=== PATIENT | female | born 1970 | race Caucasian/White ===

== ENCOUNTER 2024-12-05 09:54 | Inpatient (IN) | payer BC, SELFPAY ==
[2024-12-05 13:02] VITALS: BMI 35.4
[2024-12-05] MEDS ORDERED: ESZOPICLONE 1 MG TAB PO PRN (13:02)
[2024-12-05] MEDS: METHYLPREDNISOLONE 125 MG INJ IV ONE (13:51)
[2024-12-05] MEDS: FEXOFENADINE 180 MG TAB PO SCH (13:51)
[2024-12-05 14:09] LABS: Absolute Lymphocytes (CBC) 0.9 K/uL (0.7-4.9); Hematocrit 42.4 % (36.0-45.0); Hemoglobin 14.5 g/dL (12.0-15.0); MCH 31.1 pg (27.0-35.0); MCHC 34.2 g/dL (32.0-36.0); MCV 91.1 fL (80-100); MPV 9.8 fL (7.6-11.3); Nucleated RBC Absolute Count 0.0 (0-0); Nucleated Red Blood Cells % 0.0 % (0-0); RBC Red Blood Cell Count 4.65 M/uL (3.86-4.86); White Blood Count 8.80 thou/uL (4.3-10.9)
[2024-12-05 14:30] LABS: ALT/SGPT 16 U/L (13-56); Albumin 3.5 g/dL (3.4-5.0); Albumin/Globulin Ratio 1.1 (1.1-1.8); Alkaline Phosphatase 53 U/L (45-117); Anion Gap 13.7 mEq/L (5.0-15.0); BUN Blood Urea Nitrogen 20 mg/dL (7-18); Globulin 3.3 g/dL (2.3-3.5); Glucose Level 208 mg/dL (74-106); Magnesium 2.3 mg/dL (1.6-2.4); Potassium 3.7 mEq/L (3.5-5.1); Thyroid Stimulating Hormone 0.980 uIU/mL (0.358-3.740)
[2024-12-05 14:31] LABS: AST/SGOT < 10 U/L (15-37)
[2024-12-05] MEDS ORDERED: ONDANSETRON 4 MG/2 ML VIAL IV PRN (15:07)
[2024-12-05] MEDS: MORPHINE 2 MG/ML SYR IV PRN (15:16)
[2024-12-05] MEDS: GABAPENTIN 100 MG CAP PO SCH (15:16)
[2024-12-05 16:16] LABS: Blood Morphology Comment NOT SEEN (NOT SEEN); White Blood Cell Scan OK (OK)
[2024-12-05] MEDS: INSULIN REGULAR (HUMAN) 100 UNIT/ML SQ SCH (16:30)
[2024-12-05] MEDS: METHYLPREDNISOLONE 40 MG INJ IV SCH (20:06)
[2024-12-05] MEDS: FAMOTIDINE 20 MG/2 ML VIAL IV SCH (20:06)
[2024-12-05] MEDS: CETIRIZINE HCL 5 MG TABLET PO SCH (20:06)
[2024-12-06] MEDS: LORAZEPAM 0.5 MG TABLET PO PRN (00:41)
--- NOTE | 2024-12-06 04:05 | HP ---
Date of Admission: 12/05/2024 Chief Complaint: Rash, itching, and pain. History Of Present Illness: This is a 54-year-old female patient, who came in to see me last week 5 days ago with complaints of rash and itching over her neck area. The patient appeared to have contac t dermatitis, likely due to poison kiko type of exposure, but she did not remember having any outside exposure. She was started on oral prednisone therapy 30 mg daily for 3 days, then 20 mg daily for 3 days, then 10 mg daily for 3 days and she did start this medications as prescribed and today, she wal ked into my office this morning, requested appointment because she was feeling worse compared to last week and she was seen immediately. The patient reported that her rash has continued to get worse an d now it is involving multiple different areas of her body. She is having significant itching along with the rash and sharp pain in the areas of rash. She is taking famotidine, Zyrtec, Benadryl, and C laritin on a daily basis along with prednisone as prescribed and nothing is helping. She denies any fever. Although, she admits today that she now recollects having outside exposure prior to beginning of this rash last week and she did come in contact with poison kiko over her legs and upper body area . After I evaluated her, it was recommended for her to get admitted to the hospital because of failu re of outpatient therapy and she was agreeable and arrangements were made and she was admitted direct ly to the hospital. Allergies: TO PENICILLIN CAUSING HIVES, ALBUTEROL CAUSING PALPITATION, MONTELUKAST CAUSING DEPRESSIO N. Medications: Metoprolol 25 mg daily, prednisone as prescribed, escitalopram 20 mg daily, Lunesta 2 m g daily at bedtime, Trelegy 1 puff daily, Atrovent inhaler 2 puffs every 4 hours as needed, lorazepam 0.5 mg daily as needed. She takes progesterone daily. Review of Systems: Dermatology: As mentioned above all. Other systems reviewed and negative. Past Medical History: Significant for Guillain-Monroe syndrome in 1989, hypothyroidism, asthma, which is mild persistent, obstructive sleep apnea, kidney stone, history of recurrent UTI, palpitation, pa roxysmal atrial contractions, hypertension, depression, insomnia. Past Surgical History: Significant for and repair of deviated nasal septum in 2017 and C-s ection was in 1993. Family History: Father , had COPD and hypertension. Mother is alive, has coronary artery diseas e, hypertension, rheumatoid arthritis, and Hahn's esophagus. Sister has asthma. Social History: Negative for smoking and alcohol use. Physical Examination: VITAL SIGNS: Today, blood pressure 120/80, pulse 60, temperature 98, respiratory rate 20. Weight 19 9.2 pounds, height 6 feet 3 inches. General: Awake, alert, oriented, not in distress. HEENT: Head atraumatic, normocephalic. Conjunctivae nonerythematous. Sclerae white. Mouth, no thr ush or edema noted. Ears/Nose, no mass, lesion, discharge noted. Neck: Supple. No JVD, lymph nodes, bruit, thyromegaly noted. Lungs: Bilateral good equal air entry. Clear to auscultation. No rhonchi. No rales. Heart: Normal heart sounds, no murmur or gallop. Abdomen: Soft, bowel sounds normal. No guarding, rigidity, tenderness, mass, hepatosplenomegaly, dis tention, or bruit noted. Extremities: No leg edema. No calf tenderness. Skin: The patient has extensive pink macular rash over her anterior lateral and posterior neck and u pper chest and on her cheeks and forehead, left antecubital fossa and right lateral thigh and some ov er right anterior abdominal wall. Lymphatics: No lymph node enlargement in neck, supraclavicular, infraclavicular region. Neuro: No focal neurological deficit. Chest: Unremarkable. External Genitalia: Deferred. Rectal: Deferred. Laboratory Data: WBC 8.8, hemoglobin 14.5, platelets 277. Sodium 139, potassium 3.7, chloride 103, bicarb 26, BUN 20, creatinine 0.93. Liver function tests unremarkable. Glucose 208. TSH 0.980. Impression: 1. Contact dermatitis, due to poison kiko. 2. Hyperglycemia, rule out diabetes mellitus. 3. Hypertension. 4. Mild persistent asthma. 5. Hypothyroidism. 6. Obstructive sleep apnea. 7. Palpitation. 8. Depression. 9. Insomnia. Plan: Admit patient to hospital for further evaluation and management of this problem. The patient is appropriate for inpatient and is expected to spend 2 midnights in hospital. For her contact derma titis due to poison kiko, she has failed outpatient oral steroid therapy. We will start her on IV Michelle u-Medrol 125 mg IV x1 dose will be given upon admission and then 40 mg IV every 8 hours will be given . We will also give IV Pepcid 20 mg 2 times a day, Zyrtec at bedtime and Odalis in the morning star ting today. After she was admitted to the hospital, nurse contacted me and informed me that the farhad ent was having severe pain, described as pins and needles in the areas of the rash. So, morphine 2 m g every 4 hours along with Zofran as needed was ordered and also ordered gabapentin 100 mg 2 times a day to see how she responds to that. Ambulation was encouraged. For hyperglycemia, it could be due to steroid, but also need to rule out diabetes. Right now with use of IV steroid, her sugar will be higher than baseline and we will monitor fingerstick blood sugar and consider using mild sliding scal e if necessary to control the glucose level. Hypertension will be managed with her metoprolol and if necessary adjust medication depending on her blood pressure. No need for further intervention on as ma except continue her inhaler per order. For insomnia, we will continue her medications per order and for anxiety, continue her home medications per order. Plan of treatment discussed with her and I will see her tomorrow morning for followup. MICHELLE/MODL Voice ID: [id number]
[2024-12-06] MEDS: METOPROLOL XL 25 MG TAB PO SCH (09:27)
[2024-12-06] MEDS: ESCITALOPRAM 20 MG TAB PO SCH (09:27)
--- NOTE | 2024-12-07 01:20 | PN ---
Date of Progress Note: 12/06/2024 Subjective: Patient was seen this morning for followup. She was lying in bed, not in distress. Her pain is under better control with gabapentin and morphine. She still has itching with her rash, but it is under better control with current medications. She has noted new area of rash over her right anterior abdominal wall and right thigh compared to yesterday. Objective: Vital Signs: Reviewed. HEENT: Unremarkable. Lungs: Clear to auscultation. Cardiac: Heart sounds normal. Abdomen: Soft. Bowel sounds normal. No guarding, rigidity, tenderness, distention. Extremities: No leg edema. Skin: Patient has extensive area of pink macular rash involving neck, almost half of her face includ ing forehead, right lateral forearm, right anterior abdominal wall, left anterior forearm over antecu bital fossa. Rash on right anterior abdominal wall and right lateral thigh is worse today than yeste rday. Rash on her neck area is better today than yesterday. Laboratory Data: Fingerstick blood sugar readings reviewed. Hemoglobin A1c result pending. Impression: 1. Contact dermatitis due to poison kiko. 2. Rule out diabetes mellitus. 3. Hypertension. Plan: We will continue current medication. Continue metoprolol. Continue IV steroid, IV famotidine , Odalis, and Zyrtec. We will continue sliding scale insulin with fingerstick blood sugars check, and we will see her tomorrow for followup, possible discharge to go home tomorrow. MICHELLE/MODL Voice ID: [id number] Report ID: [id number]
[2024-12-07 13:19] VITALS: BP 155/83; TEMP 97.9
--- NOTE | 2024-12-07 20:11 | DS ---
Date of Discharge: 12/07/2024 Disposition: Discharged to go home. Discharge Medications And Instructions: 1. . 2. . Discharge Diagnoses: 1. . 2. . Laboratory Data: Upon admission, WBC 8.8, hemoglobin 14.5, platelets 277. Sodium 139, potassium 3.7 , chloride 103, bicarb 26, BUN 20, creatinine 0.93, glucose 208. Liver function tests unremarkable. TSH 0.980. Hemoglobin A1c 5.4. Physical Examination: HEENT: Unremarkable. Lungs: Clear to auscultation. Heart: Sounds normal. Abdomen: Soft. Bowel sounds normal. No guarding, rigidity, tenderness, or distention. Extremities: No leg edema. 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 Rash from left forearm antecubital region is significantly better than w hat it was 2 days ago. Rash from right abdominal wall and right lateral thigh have remained unchange d from yesterday. Hospital Course: This is a 54-year-old pleasant female patient admitted to the hospital with worseni ng of rash, itching, and pain in the area of rash due to contact dermatitis from exposure to poison i vy. Please see dictated H and P for more information. The patient failed outpatient treatment and d ecision was made to admit her to the hospital with worsening of her symptoms, and after she was admit eugenia to the hospital, we started her on IV steroid on very first day after admission. She was given 1 25 mg of Solu-Medrol IV and then 40 mg IV every 8 hours was started. The patient was started on Lester gra in the morning, Zyrtec at bedtime, and also was started on gabapentin 100 mg 3 times a day and fa motidine 20 mg IV twice a day. The patient had significant pain in the area of rash and with all thi s combination treatment, her symptoms have improved significantly. There is no new area of rash in l ast 24 hours, and in fact, some areas of the rash has shown significant improvement. So, overall tod ay patient feels a lot better. Medically, she is stable for discharge. The patient was given renuka howard instructions about tapering dose of prednisone and she was also instructed about how to take this p rednisone as per written instructions on the discharge and my nurse contacted her with all that infor kimberley as well. I will see her next week for followup. Total time spent today 35 minutes. MICHELLE/MODL Voice ID: [id number] Report ID: [id number]
== END 2024-12-07 16:25 | disposition home or self-care (01) | DRG 607 ==
LOC: 2ND 11:02
PROVIDERS: ADMIT Internal Medicine; ATTEND Internal Medicine
DX: L23.7 Allergic contact dermatitis due to plants, except food (principal); E03.9 Hypothyroidism, unspecified; G47.00 Insomnia, unspecified; F32.A Depression, unspecified; J45.30 Mild persistent asthma, uncomplicated; G47.33 Obstructive sleep apnea (adult) (pediatric); F41.9 Anxiety disorder, unspecified; I10 Essential (primary) hypertension; E11.65 Type 2 diabetes mellitus with hyperglycemia; R00.2 Palpitations; Z88.0 Allergy status to penicillin; Z88.8 Allergy status to other drugs, medicaments and biological substances
CPT/HCPCS: 36415; 80053; 82947; 83036; 83735; 84443; 85025; J1815; J2270; J2919